=== PATIENT | female | born 1965 | race Caucasian/White ===

== ENCOUNTER 2017-01-02 06:33 | Day surgery (SDC) | payer BC ==
[~2017-01-02 06:33] MED LIST: Lactated Ringers 1,000 ML IV SCH
[2017-01-02] MEDS ORDERED: Lidocaine 2% 5 ML SDV ONE ×2 (07:06→07:26)
[2017-01-02] MEDS ORDERED: Midazolam 1 MG/ML 2 ML SDV ONE (07:07)
[2017-01-02] MEDS ORDERED: fentaNYL 250 MCG/5 ML SDV ONE (07:07)
[2017-01-02] MEDS ORDERED: Lidocaine 1% 50 ML MDV ONE (07:07)
[2017-01-02] MEDS ORDERED: Propofol 200 MG/20 ML SDV ONE ×2 (07:07→08:32)
[2017-01-02] MEDS ORDERED: Ketorolac 30 MG/ML SDV ONE (07:07)
[2017-01-02] MEDS ORDERED: Ondansetron 4 MG/2 ML SDV ONE (07:07)
[2017-01-02] MEDS ORDERED: Bupivacaine 0.25%/EPINEPHrine 1:200,000 10 ML SDV ONE (07:18)
[2017-01-02] MEDS ORDERED: Bupivacaine 0.5% 10 ML SDV ONE (07:19)
[2017-01-02] MEDS ORDERED: ceFAZolin 2 GM in Premix Bag 1 BAG IV SCH (08:00)
--- NOTE | 2017-01-02 08:03 | PCM.PREANE ---
Preanesthetic Assessment - Procedure Proposed Procedure: right shoulder arthroscopic repair - Anesthesia/Transfusion/Family Hx Anesthesia History: Prior Anesthesia Without Reaction Family History of Anesthesia Reaction: No Transfusion History: No Prior Transfusion(s) Intubation History: Unknown Additional History: 1995 was hospitalized post cholecystectomy for complications which included ICU days and several surgeries. She remains fearful of any surgery to this date because of that experience. - Review of Systems General: Other (Obesity) Pulmonary: Other (smoker q day) Cardiovascular: Other (hypertension and hypercholesterolemia) Gastrointestinal: No symptoms Neurological: Other (pain right shoulder) Other: Reports: Diabetes (Type II on metformin) - Physical Assessment NPO Status Date: 01/01/17 NPO Status Time: 23:30 O2 Sat by Pulse Oximetry: 96 Respiratory Rate: 16 Vital Signs: Last Vital Signs Temp 98.2 F 01/02/17 06:50 Pulse 74 01/02/17 06:50 Resp 16 01/02/17 06:50 BP 147/77 H 01/02/17 06:50 Pulse Ox 96 01/02/17 06:50 Height: 5 ft 6 in Weight: 250 lb ASA Class: 3 Mental Status: Alert & Oriented x3 Airway Class: Mallampati = 1 Dentition: Reports: Normal Dentition (with missing partials), Partial (removed) Thyro-Mental Finger Breadths: 3 Mouth Opening Finger Breadths: 3 ROM/Head Extension: Full Lungs: Clear to auscultation, Normal respiratory effort Cardiovascular: Regular Rate, Regular Rhythm, No Murmurs - Lab Values: Laboratory Last Values POC Glucose 124 mg/dL (60-110) H 01/02/17 07:17 - Allergies Allergies/Adverse Reactions: Allergies Allergy/AdvReac Type Severity Reaction Status Date / Time No Known Allergies Allergy Verified 12/28/16 11:55 - Blood Blood Available: No Product(s) Available: None - Anesthesia Plan Free Text/Narrative:: discussed interscalene block with she and her ; if done, will be at end case for post op analgesia. risks and benefits were discussed. Plan presented to surgeon. 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: Musculoskeletal History: Reports: Other (See Below) Other Musculoskeletal History: rt shoulder pain Psychiatric History: Reports: Anxiety Endocrine/Metabolic History: Reports: Diabetes, Type II, Hypothyroidism, Obesity /BMI 30+ - Past Surgical History Head Surgeries/Procedures: Reports: None HEENT Surgical History: Reports: Oral Surgery GI Surgical History: Reports: Cholecystectomy Female Surgical History: Reports: Section, Hysterectomy Musculoskeletal Surgical History: Reports: Carpal Tunnel - SUBSTANCE USE Smoking Status *Q: Current Every Day Smoker Tobacco Use Within Last Twelve Months: Cigarettes Recreational Drug Use History: No - HOME MEDS Home Medications: Home Meds LORazepam 1 mg PO ASDIRECTED PRN 12/28/16 [History] Levothyroxine Sodium [Synthroid] 137 mcg PO DAILY 12/28/16 [History] Lisinopril 5 mg PO DAILY 12/28/16 [History] Valsartan/Hydrochlorothiazide [Diovan Hct 320-25 mg Tablet] 1 tab PO DAILY 12/28 [History] atorvaSTATin [Lipitor] 80 mg PO DAILY 12/28/16 [History] metFORMIN HCl [Metformin HCl] 500 mg PO BID 12/28/16 [History] - CURRENT (IN HOUSE) MEDS Current Meds: Current Medications Hydrocodone Bitart/Acetaminophen (Kelliher 325-10 Mg) 1 - 2 tab PO Q4H PRN PRN Reason: Pain Lactated Ringer's (Ringers, Lactated) 1,000 mls @ 100 mls/hr IV ASDIRECTED [facility] Last Admin: 01/02/17 07:00 Dose: 100 mls/hr Cefazolin Sodium/Dextrose 2 gm (/ Premix) 50 mls @ 100 mls/hr IV ONCALL [facility] Ketorolac Tromethamine (Toradol) 10 mg PO Q6H PRN PRN Reason: Pain Stop: 01/07/17 09:01 Discontinued Medications Bupivacaine HCl (Sensorcaine-Mpf 0.5%) Confirm Administered Dose 20 ml .ROUTE .STK-MED ONE Stop: 01/02/17 07:20 Bupivacaine HCl/Epinephrine Bitart (Marcaine 0.25%/Epinephrine 1:200,000) Confirm Administered Dose 20 ml .ROUTE .STK-MED ONE Stop: 01/02/17 07:19 Fentanyl (Sublimaze) Confirm Administered Dose 250 mcg .ROUTE .STK-MED ONE Stop: 01/02/17 07:08 Ketorolac Tromethamine (Toradol) Confirm Administered Dose 30 mg .ROUTE .STK- MED ONE Stop: 01/02/17 07:08 Lidocaine (Xylocaine-Mpf 2%) Confirm Administered Dose 10 ml .ROUTE .STK-MED ONE Stop: 01/02/17 07:07 Lidocaine (Xylocaine-Mpf 2%) Confirm Administered Dose 5 ml .ROUTE .STK-MED ONE Stop: 01/02/17 07:27 Lidocaine HCl (Xylocaine 1%) Confirm Administered Dose 50 ml .ROUTE .STK-MED ONE Stop: 01/02/17 07:08 Midazolam HCl (Versed 1 Mg/Ml) Confirm Administered Dose 2 mg .ROUTE .STK-MED ONE Stop: 01/02/17 07:08 Ondansetron HCl (Zofran) Confirm Administered Dose 4 mg .ROUTE .STK-MED ONE Stop: 01/02/17 07:08 Propofol (Diprivan 20 Ml) Confirm Administered Dose 400 mg .ROUTE .STK-MED ONE Stop: 01/02/17 07:08
[2017-01-02] MEDS ORDERED: HYDROmorphone 2 MG/ML Syringe ONE (08:23)
[2017-01-02] MEDS ORDERED: ePHEDrine 50 MG/ML SDV ONE (08:31)
[2017-01-02] MEDS ORDERED: Phenylephrine/Normal Saline 100 MCG/ML 10 ML Syringe ONE (08:31)
[2017-01-02] MEDS ORDERED: Acetaminophen/HYDROcodone 325-10 MG Tab PO PRN (09:00)
[2017-01-02] MEDS ORDERED: Ketorolac 10 MG Tab PO PRN (09:00)
--- NOTE | 2017-01-02 09:48 | PCM.OPNOTE ---
- General Post-Op/Procedure Note Date of Surgery/Procedure: 01/02/17 Operative Procedure(s): R shoulder arthroscopy with SAD, debridement of anterior labrum and biceps tenotomy Post-Op Diagnosis: R shoulder impingement, biceps tendonopathy Anesthesia Technique: General ET tube Primary Surgeon: Deidra Parmar Wool Carder: Corazon Vargas in mLs: 5 Condition: Good Free Text/Narrative:: #[id number]
--- NOTE | 2017-01-02 10:10 | PCM.SN ---
- Free Text/Narrative Note: The patient had been counseled for an interscalene block for post operative analgesia. This was requested by the surgeon. The blockade was done in sterile fashion after completion of the right shoulder surgery and applicaiotn of bandage. 40 ml of 0.375% marcaine was injected after stimuplex guided twitch was obtained. Negative aspiration was observed prior to the blockade. The general anesthetic was then completed and patient taken to PACU in good condition. JKO and DNS present for the blockade ([id number]).
--- NOTE | 2017-01-02 10:11 | PCM.POSTAN ---
POST ANESTHESIA ASSESSMENT - MENTAL STATUS Mental Status: alert, oriented - RESPIRATORY Respiratory Status: respiratory rate WNL, airway patent, O2 saturation stable - CARDIOVASCULAR CV Status: pulse rate WNL, blood pressure stable - GASTROINTESTINAL GI Status: no symptoms - POST OP HYDRATION Hydration Status: adequate & stable - OBSERVATIONS Free Text/Narrative:: FBS @ 144. Plan to return to [facility] bed for phase II.
[2017-01-02] MEDS ORDERED: fentaNYL 250 MCG/5 ML SDV IVPUSH PRN (10:15)
[2017-01-02] MEDS ORDERED: fentaNYL 100 MCG/2 ML SDV ONE ×2 (10:21→10:32)
--- NOTE | 2017-01-02 14:22 | PCM48HPAN ---
Post Anesthesia Note - EVALUATION WITHIN 48HRS OF ANESTHETIC Vital Signs in Normal Range: Yes Patient Participated in Evaluation: Yes Respiratory Function Stable: Yes Airway Patent: Yes Cardiovascular Function Stable: Yes Hydration Status Stable: Yes Pain Control Satisfactory: Yes Nausea and Vomiting Control Satisfactory: Yes Mental Status Recovered: Yes
[2017-01-02 14:28] VITALS: BP 137/78
--- NOTE | 2017-01-02 18:20 | OR ---
SURGEON: Deidra Parmar MD DATE OF PROCEDURE: 01/02/2017 PREOPERATIVE DIAGNOSES: 1. Right shoulder impingement syndrome. 2. Right shoulder biceps tendinopathy. POSTOPERATIVE DIAGNOSES: 1. Right shoulder impingement syndrome. 2. Right shoulder biceps tendinopathy. 3. Right shoulder degenerative anterior labral tear. PROCEDURE: Right shoulder arthroscopy with: 1. Subacromial decompression with release of coracoacromial ligament and acromioplasty. 2. Extensive debridement including biceps tenotomy and debridement of anterior labrum. FLAT LOCKER: Corazon Vargas PA-C. ANESTHESIA: General with interscalene block placed at completion of procedure. COMPLICATIONS: None. DVT PROPHYLAXIS: PAS boots to bilateral lower extremities. IMPLANTS USED: None. BRIEF HISTORY: Tiffany is a 51-year-old female, who has had complaint of progressive right shoulder pain. She had failed conservative treatment. Due to her lack of response to conservative treatment, I did recommend surgical intervention. The risks and goals of the procedure were discussed with the patient and were documented preoperatively. She agreed to proceed. DESCRIPTION OF PROCEDURE: The patient was properly identified and brought to the operating room. She was transferred from the OR cart and placed on the operating table in supine position. General anesthesia was administered. After adequate anesthesia was obtained, she was placed into a beach-chair position. Care was taken to pad all bony prominences. Her head was secured. The right upper extremity was then prepped in standard fashion using ChloraPrep solution. It was then sterilely draped. A time-out was performed to ensure correct site and procedure. Preoperative antibiotics were given. The surgical site had been marked preoperatively. Bony landmarks were identified with a marking pen. Approximately 30 mL of normal saline was introduced into the glenohumeral joint. A posterior portal was then established. Blunt trocar and cannula were introduced into the glenohumeral joint. Camera, inflow, and outflow were assembled. The rotator interval was visualized. She did have mild synovitis noted. An anterior portal was then established. The subscapularis was visualized and probed, and found to be intact. The subscapular recess showed no loose bodies. The anterior labrum showed degenerative changes. This was resected with electrocautery. The biceps insertion appeared to be intact. She did have synovitis noted along the course of the biceps tendon. Due to her preoperative symptoms along with the intraoperative findings, I performed a biceps tenotomy with electrocautery. The biceps retracted easily into the bicipital tendon sheath. The attachment site was contoured with electrocautery. The posterior labrum did not show significant degenerative tearing. Both the glenoid and humeral head were inspected and no degenerative changes were noted. I then entered the axillary pouch. No loose bodies were noted. Mild synovitis was noted. The arm was then brought into an abducted and externally rotated position. The bare area was noted posteriorly. As I progressed forward, the cuff insertion appeared intact. There was some interstitial tearing along the anterior aspect of the supraspinatus, however, the attachment site appeared intact. The instruments were then removed from the shoulder. I then entered the subacromial space. A lateral portal was established. Using a shaver along with electrocautery, an extensive bursectomy was performed. She did have a fair amount of bursal tissue which appeared to be causing some impingement. This was resected without difficulty. The coracoacromial ligament was released along the anterior border of the acromion. She had a small bone spur anteriorly. This was then resected with the 5.0 mm liza. The rotator cuff was then inspected. It was also probed and no softening or tears were noted. Instruments were then removed from the shoulder. The portal sites were closed with 3-0 nylon. Xeroform gauze was placed over the wound and a bulky dressing was applied. She was awakened from her anesthetic. At the completion of the case, the patient was turned over to the anesthesia staff for placement of the interscalene block. All needle and sponge counts were correct. ANA LILIA / MARS /[id number]
== END 2017-01-02 14:25 | disposition home or self-care (01) ==
LOC: MW.SDS 06:33
PROVIDERS: ATTEND Orthopaedic Surgery
PROC: 0RNJ4ZZ Release Right Shoulder Joint, Percutaneous Endoscopic Approach (ICD-10-PCS; principal; 2017-01-02)
PROC: 0RBJ4ZZ Excision of Right Shoulder Joint, Percutaneous Endoscopic Approach (ICD-10-PCS; 2017-01-02)
DX: M75.41 Impingement syndrome of right shoulder (principal); M75.21 Bicipital tendinitis, right shoulder; S43.491A Other sprain of right shoulder joint, initial encounter; M65.9 Synovitis and tenosynovitis, unspecified; M19.011 Primary osteoarthritis, right shoulder; F41.9 Anxiety disorder, unspecified; E11.9 Type 2 diabetes mellitus without complications; E03.9 Hypothyroidism, unspecified; E78.00 Pure hypercholesterolemia, unspecified; I10 Essential (primary) hypertension; E66.9 Obesity, unspecified; F17.210 Nicotine dependence, cigarettes, uncomplicated; Z79.84 Long term (current) use of oral hypoglycemic drugs; Z79.899 Other long term (current) drug therapy; Z68.41 Body mass index [BMI] 40.0-44.9, adult; Z98.51 Tubal ligation status; Z90.49 Acquired absence of other specified parts of digestive tract; Z90.710 Acquired absence of both cervix and uterus; Z98.890 Other specified postprocedural states
CPT/HCPCS: 29823; 29826; 82962; A9270; J0690; J1170; J1885; J2250; J2405; J3010; J7120; 01630; 64415; 88304; J2704

== ENCOUNTER 2021-01-03 06:32 | Day surgery (SDC) | payer BC ==
[2021-01-03] MEDS ORDERED: Dexmedetomidine 200 MCG/2 ML SDV ONE (07:18)
[2021-01-03] MEDS ORDERED: Lidocaine 2% 5 ML SDV ONE (07:18)
[2021-01-03] MEDS ORDERED: Ketorolac 30 MG/ML SDV ONE (07:18)
[2021-01-03] MEDS ORDERED: Metoclopramide 10 MG/2 ML SDV ONE (07:18)
[2021-01-03] MEDS ORDERED: Glycopyrrolate 0.2 MG/ML SDV ONE (07:18)
[2021-01-03] MEDS ORDERED: Ondansetron 4 MG/2 ML SDV ONE (07:18)
[2021-01-03] MEDS ORDERED: Dexamethasone 4 MG/ML 5 ML MDV ONE (07:18)
[2021-01-03] MEDS ORDERED: Propofol 200 MG/20 ML SDV ONE ×2 (07:22→08:13)
[2021-01-03] MEDS ORDERED: Sodium Chloride 0.9% 20 ML ONE (07:27)
[2021-01-03 07:35] LABS: BLOOD UREA NITROGEN,BUN 17 mg/dL (7.0-18.0); CARBON DIOXIDE,CO2 25.9 mmol/L (21.0-32.0); CHLORIDE,CL 105 mmol/L (98-107); GLUCOSE RANDOM 112 mg/dL (74-106); POTASSIUM,K 3.8 mmol/L (3.5-5.1); SODIUM,NA 140 mmol/L (136-145)
[2021-01-03] MEDS ORDERED: Ondansetron 4 MG/2 ML SDV IVPUSH PRN ×2 (07:36→08:55)
[2021-01-03] MEDS ORDERED: Metoclopramide 10 MG/2 ML SDV IVPUSH PRN (07:36)
[2021-01-03] MEDS ORDERED: fentaNYL 100 MCG/2 ML SDV IVPUSH PRN (07:36)
[2021-01-03] MEDS ORDERED: Albuterol 0.083% 2.5 MG/3 ML Neb Soln NEB PRN (07:36)
[2021-01-03] MEDS ORDERED: Naloxone 0.4 MG/ML Syringe IVPUSH PRN (07:36)
[2021-01-03] MEDS ORDERED: Morphine 2 MG/ML SYRINGE IVPUSH PRN (07:36)
[2021-01-03] MEDS ORDERED: Bupivacaine 0.25% 10 ML SDV ONE (07:38)
[2021-01-03] MEDS ORDERED: Lidocaine 1% 20 ML MDV ONE (07:38)
[2021-01-03] MEDS ORDERED: Lidocaine 1% with EPINEPHrine 1:100,000 20 ML MDV ONE (07:38)
--- NOTE | 2021-01-03 07:39 | PCM.PREANE ---
Preanesthetic Assessment - Anesthesia/Transfusion/Family Hx Anesthesia History: Prior Anesthesia Without Reaction Family History of Anesthesia Reaction: No Transfusion History: Prior Transfusion Reaction Type of Transfusion Reactions: Reports: Other (see below) Other Type of Transfusion Reaction: itching Intubation History: Unknown - Review of Systems General: Fatigue Pulmonary: Shortness of Breath, Cough Cardiovascular: Dyspnea on Exertion Gastrointestinal: No Symptoms Neurological: No Symptoms Other: Reports: Diabetes - Physical Assessment NPO Status Date: 01/03/21 NPO Status Time: 00:00 Vital Signs: Last Vital Signs Temp 97.7 F 01/03/21 06:40 Pulse 70 01/03/21 06:40 Resp 15 01/03/21 06:40 BP 151/67 H 01/03/21 06:40 Pulse Ox 96 01/03/21 06:40 Height: 5 ft 5.75 in Weight: 227 lb ASA Class: 3 Mental Status: Alert & Oriented x3 Airway Class: Mallampati = 2 Dentition: Reports: Edentulous Thyro-Mental Finger Breadths: 4 Mouth Opening Finger Breadths: 4 ROM/Head Extension: Full Lungs: Clear to Auscultation, Normal Respiratory Effort Cardiovascular: Regular Rate, Regular Rhythm - Lab Values: Laboratory Last Values WBC 9.82 K/uL (4.0-11.0) 01/03/21 07:00 RBC 5.23 M/uL (4.30-5.90) 01/03/21 07:00 Hgb 12.4 g/dL (12.0-16.0) 01/03/21 07:00 Hct 37.9 % (36.0-46.0) 01/03/21 07:00 MCV 72.5 fL (80.0-98.0) L 01/03/21 07:00 MCH 23.7 pg (27.0-32.0) L 01/03/21 07:00 MCHC 32.7 g/dL (31.0-37.0) 01/03/21 07:00 RDW Std Deviation 37.1 fl (28.0-62.0) 01/03/21 07:00 RDW Coeff of Jamilah 14 % (11.0-15.0) 01/03/21 07:00 Plt Count 268 K/uL (150-400) 01/03/21 07:00 MPV 10.00 fL (7.40-12.00) 01/03/21 07:00 Nucleated RBC % 0.0 /100WBC 01/03/21 07:00 Nucleated RBCs # 0 K/uL 01/03/21 07:00 - Allergies Allergies/Adverse Reactions: Allergies Allergy/AdvReac Type Severity Reaction Status Date / Time gabapentin Allergy Blisters Verified 12/28/20 13:15 lisinopril Allergy Cough Verified 12/28/20 13:15 - Acknowledgements Anesthesia Type Planned: General Anesthesia Pt an Appropriate Candidate for the Planned Anesthesia: Yes Alternatives and Risks of Anesthesia Discussed w Pt/Guardian: Yes Pt/Guardian Understands and Agrees with Anesthesia Plan: Yes PreAnesthesia Questionnaire HEENT History: Reports: Other (See Below) Other HEENT History: upper and lower removable partial denture Cardiovascular History: Reports: High Cholesterol, Hypertension Respiratory History: Reports: None Gastrointestinal History: Reports: Cholelithiasis Genitourinary History: Reports: None 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: Musculoskeletal History: Reports: None Neurological History: Reports: Seizure, Other (See Below) Other Neuro History: right sciatic nerve pain and degenerative disc disease, had a seizure due to toxemia with first Psychiatric History: Reports: None Endocrine/Metabolic History: Reports: Diabetes, Type II, Hypothyroidism, Obesity/BMI 30+ Other Endocrine/Metabolic History: will be off of Levothyroxine for a month due to "low numbers" Hematologic History: Reports: Blood Transfusion(s) Immunologic History: Reports: None Oncologic (Cancer) History: Reports: None Dermatologic History: Reports: None - Past Surgical History Head Surgeries/Procedures: Reports: None HEENT Surgical History: Reports: None Cardiovascular Surgical History: Reports: None Respiratory Surgical History: Reports: None GI Surgical History: Reports: Cholecystectomy, Other (See Below) Other GI Surgeries/Procedures: had stones in CBD post-op- became very ill and w as on a ventilator Female Surgical History: Reports: Section, Hysterectomy, Tubal Ligation Other Female Surgeries/Procedures: x3 Endocrine Surgical History: Reports: None Neurological Surgical History: Reports: None Musculoskeletal Surgical History: Reports: Carpal Tunnel, Shoulder Surgery Other Musculoskeletal Surgeries/Procedures:: bilateral CTR, ligament repair in right shoulder Dermatological Surgical History: Reports: None - SUBSTANCE USE Tobacco Use Status *Q: Current Every Day Tobacco User Tobacco Use Within Last Twelve Months: Cigarettes Recreational Drug Use History: No - HOME MEDS Home Medications: Home Meds atorvaSTATin [Lipitor] 80 mg PO BEDTIME 12/28/16 [History] metFORMIN HCl [Metformin HCl] 1,000 mg PO BID 12/28/16 [History] Celecoxib [CeleBREX] 100 mg PO DAILY PRN 12/28/20 [History] Levothyroxine 112 mcg PO DAILY PRN 12/28/20 [History] Losartan Potassium 100 mg PO QAM 12/28/20 [History] amLODIPine [Norvasc] 5 mg PO BEDTIME 12/28/20 [History] hydroCHLOROthiazide [Hydrochlorothiazide] 25 mg PO DAILY 12/28/20 [History] traMADol [Ultram] 50 mg PO BID 12/28/20 [History] - CURRENT (IN HOUSE) MEDS Current Meds: Current Medications Lactated Ringer's (Ringers, Lactated) 1,000 mls @ 100 mls/hr IV ASDIRECTED [facility] Last Admin: 01/03/21 06:54 Dose: 100 mls/hr Documented by: Discontinued Medications Dexamethasone (Dexamethasone 4 Mg/Ml 5 Ml Mdv) Confirm Administered Dose 20 mg .ROUTE .STK-MED ONE Stop: 01/03/21 07:19 Dexmedetomidine HCl (Dexmedetomidine 200 Mcg/2 Ml Sdv) Confirm Administered Dose 200 mcg .ROUTE .STK-MED ONE Stop: 01/03/21 07:19 Glycopyrrolate (Glycopyrrolate 0.2 Mg/Ml Sdv) Confirm Administered Dose 0.2 mg .ROUTE .STK-MED ONE Stop: 01/03/21 07:19 Acetaminophen (Ofirmev 1000 Mg/100 Ml) Confirm Administered Dose 100 mls @ as directed .ROUTE .STK-MED ONE Stop: 01/03/21 07:22 Sodium Chloride (Normal Saline) Confirm Administered Dose 20 mls @ as directed .ROUTE .STK-MED ONE Stop: 01/03/21 07:28 Ketorolac Tromethamine (Ketorolac 30 Mg/Ml Sdv) Confirm Administered Dose 30 mg .ROUTE .STK-MED ONE Stop: 01/03/21 07:19 Lidocaine (Lidocaine 2% 5 Ml Sdv) Confirm Administered Dose 5 ml .ROUTE .STK-MED ONE Stop: 01/03/21 07:19 Metoclopramide HCl (Metoclopramide 10 Mg/2 Ml Sdv) Confirm Administered Dose 10 mg .ROUTE .STK-MED ONE Stop: 01/03/21 07:19 Ondansetron HCl (Ondansetron 4 Mg/2 Ml Sdv) Confirm Administered Dose 4 mg .ROUTE .STK-MED ONE Stop: 01/03/21 07:19 Propofol (Propofol 200 Mg/20 Ml Sdv) Confirm Administered Dose 400 mg .ROUTE .STK-MED ONE Stop: 01/03/21 07:23
[2021-01-03] MEDS ORDERED: fentaNYL 100 MCG/2 ML SDV ONE (08:15)
[2021-01-03] MEDS: HYDROmorphone 2 MG/ML Syringe IVPUSH PRN ×4 (08:51→10:07)
[2021-01-03] MEDS ORDERED: Promethazine 25 MG/ML SDV IM PRN (08:55)
[2021-01-03] MEDS ORDERED: Morphine 4 MG/ML Syringe IVPUSH PRN (08:55)
--- NOTE | 2021-01-03 08:55 | PCM.OPNOTE ---
- General Post-Op/Procedure Note Date of Surgery/Procedure: 01/03/21 Operative Procedure(s): anterior colporrhaphy Findings: 3rd degree cystocele Pre Op Diagnosis: cystocele Post-Op Diagnosis: Same Anesthesia Technique: Other (see below) (TIVA) Primary Surgeon: Sheila Fernando Secondary Surgeon: Yazmin Vieira Anesthesia Provider: Jay Ohara [employer] F[employer] Tool Technician: Nirali Ames Pathology: vaginal mucosa Fluid Replacement, Intraop: 700 EBL in mLs: 20 Complications: None Known Condition: Good
[2021-01-03] MEDS ORDERED: Lactated Ringers 1,000 ML IV SCH (09:00)
--- NOTE | 2021-01-03 09:03 | PCM48HPAN ---
Post Anesthesia Note - EVALUATION WITHIN 48HRS OF ANESTHETIC Vital Signs in Normal Range: Yes Patient Participated in Evaluation: Yes Respiratory Function Stable: Yes Airway Patent: Yes Cardiovascular Function Stable: Yes Hydration Status Stable: Yes Pain Control Satisfactory: Yes Nausea and Vomiting Control Satisfactory: Yes Mental Status Recovered: Yes Vital Signs: Last Vital Signs Temp 97.7 F 01/03/21 08:42 Pulse 57 L 01/03/21 09:01 Resp 10 L 01/03/21 09:01 BP 110/40 L 01/03/21 09:01 Pulse Ox 98 01/03/21 09:01
--- NOTE | 2021-01-03 09:03 | PCM.POSTAN ---
POST ANESTHESIA ASSESSMENT - MENTAL STATUS Mental Status: Alert, Oriented - VITAL SIGNS Vital Signs: Last Vital Signs Temp 97.7 F 01/03/21 08:42 Pulse 57 L 01/03/21 09:01 Resp 10 L 01/03/21 09:01 BP 110/40 L 01/03/21 09:01 Pulse Ox 98 01/03/21 09:01 - RESPIRATORY Respiratory Status: Respiratory Rate WNL, Airway Patent, O2 Saturation Stable - CARDIOVASCULAR CV Status: Pulse Rate WNL, Blood Pressure Stable - GASTROINTESTINAL GI Status: No Symptoms - POST OP HYDRATION Hydration Status: Adequate & Stable
--- NOTE | 2021-01-03 11:16 | OR ---
SURGEON: Sheila Fernando M.D. DATE OF PROCEDURE: 01/03/2021 PREOPERATIVE DIAGNOSIS: Third-degree symptomatic cystocele. POSTOPERATIVE DIAGNOSIS: Third-degree symptomatic cystocele. PROCEDURE: Anterior colporrhaphy. PRIMARY SURGEON: Sheila Fernando M.D. OUTPATIENT COORDINATOR: Yazmin Vieira MD ANESTHESIA: TIVA. FINDINGS: Third-degree cystocele. COMPLICATIONS: None known. PATHOLOGY SPECIMEN: Vaginal mucosa. INTRAVENOUS FLUIDS: 700 mL of crystalloid. ESTIMATED BLOOD LOSS: 20 mL. BRIEF HISTORY: This is a 55-year-old female. She presents with a symptomatic bulge from her vagina. This is very worrisome to her. On examination, she had a third-degree cystocele. She was offered pessary versus surgical repair, and she desires to proceed with surgical repair with risks discussed including bleeding; infection; injury to bowel, bladder, blood vessels, ureters, or other organs; risk of thromboembolic event; and risk of anesthesia. Understanding all these risks, she does desire to proceed. DESCRIPTION OF PROCEDURE: With the patient in dorsal lithotomy position, under total IV anesthesia, and with SCDs in place, the perineum and vagina were prepped with Betadine, draped in usual fashion for vaginal surgery. SCDs were in place. A Oakley catheter had been placed. An appropriate time-out was held. Weighted speculum was placed posteriorly. The Allis clamp was placed approximately 2 cm cephalad from the urethral meatus. The smooth vaginal mucosa was identified overlying the cystocele, and the hydrodissection was performed. A scalpel was used to incise a 1 cm incision just below the Allis clamp. The vaginal mucosa was undermined with Metzenbaum scissors. The muscularis layer was from the overlying vaginal mucosa. The muscularis layer was reapproximated in the midline using multiple interrupted mattress sutures of 3-0 Vicryl. The vaginal mucosa was slightly trimmed. The vaginal mucosa was closed with a running lock suture of 0 Polysorb. There was excellent reduction of the cystocele. Final sponge, needle, and instrument counts were reported as correct. There were no known complications. The patient was transferred to Recovery in good condition. YANELI / MARS /[id number]
[2021-01-03] MEDS ORDERED: traMADol 50 MG Tab ONE (12:30)
[2021-01-03] MEDS: Ketorolac 30 MG/ML SDV IVPUSH SCH ×3 (15:15→20:59)
[2021-01-03] MEDS: metFORMIN 500 MG Tab PO SCH (17:09)
[2021-01-03] MEDS ORDERED: traMADol 50 MG Tab PO PRN (21:00)
[2021-01-03] MEDS ORDERED: atorvaSTATin 40 MG Tab PO SCH (21:00)
[2021-01-03] MEDS ORDERED: amLODIPine 5 MG Tab PO SCH (21:00)
[2021-01-04] MEDS: Ketorolac 30 MG/ML SDV IVPUSH SCH ×2 (03:21→09:30)
[2021-01-04 03:47] VITALS: PULSE 67
[2021-01-04] MEDS ORDERED: Levothyroxine 112 MCG Tab PO SCH (07:30)
[2021-01-04] MEDS: metFORMIN 500 MG Tab PO SCH (08:01)
--- NOTE | 2021-01-04 08:46 | PCM.SURGPN ---
- General Info Date of Service: 01/04/21 Date of Surgery/Procedure: 01/03/21 POD#: 1 Post-Op Diagnosis: cystocele Functional Status: Reports: Pain Controlled, Tolerating Diet, Ambulating, Urinating - Review of Systems General: Reports: No Symptoms HEENT: Reports: No Symptoms Pulmonary: Reports: No Symptoms Cardiovascular: Reports: No Symptoms Gastrointestinal: Reports: No Symptoms Genitourinary: Reports: No Symptoms Musculoskeletal: Reports: No Symptoms Skin: Reports: No Symptoms Neurological: Reports: No Symptoms Psychiatric: Reports: No Symptoms - Patient Data Vitals - Most Recent: Last Vital Signs Temp 36.4 C 01/04/21 03:25 Pulse 67 01/04/21 03:25 Resp 13 01/04/21 03:25 BP 130/73 01/04/21 03:25 Pulse Ox 93 L 01/04/21 04:00 Weight - Most Recent: 102.965 kg I&O - Last 24 Hours: Intake & Output 01/03/21 01/04/21 01/04/21 22:59 06:59 14:59 Output Total 300 Balance -300 Lab Results Last 24 Hrs: Laboratory Results - last 24 hr 01/03/21 01/03/21 01/03/21 Range/Units 07:00 07:00 12:15 POC Glucose 172 H (70-99) mg/dL Blood Type A NEGATIVE Antibody Screen POSITIVE Antibody Identification Anti-K Antigen Typing K Antigen - NEGATIVE Crossmatch See Detail 01/03/21 01/03/21 Range/Units 17:05 22:28 POC Glucose 212 H 136 H (70-99) mg/dL Blood Type Antibody Screen Antibody Identification Antigen Typing Crossmatch Med Orders - Current: Current Medications Amlodipine Besylate (Amlodipine 5 Mg Tab) 5 mg PO BEDTIME [facility] Last Admin: 01/03/21 20:58 Dose: 5 mg Documented by: Atorvastatin Calcium (Atorvastatin 40 Mg Tab) 80 mg PO BEDTIME [facility] Last Admin: 01/03/21 20:57 Dose: 80 mg Documented by: Hydrochlorothiazide (Hydrochlorothiazide 25 Mg Tab) 25 mg PO DAILY [facility] Lactated Ringer's (Ringers, Lactated) 1,000 mls @ 125 mls/hr IV ASDIRECTED [facility] Last Admin: 01/03/21 10:33 Dose: 125 mls/hr Documented by: Ketorolac Tromethamine (Ketorolac 30 Mg/Ml Sdv) 15 mg IVPUSH Q6H [facility] Stop: 01/08/21 08:55 Last Admin: 01/04/21 03:21 Dose: 15 mg Documented by: Levothyroxine Sodium (Levothyroxine 112 Mcg Tab) 112 mcg PO ACBREAKFAST [facility] Last Admin: 01/04/21 07:44 Dose: Not Given Documented by: Losartan Potassium (Losartan 50 Mg Tab) 100 mg PO QAM [facility] Metformin HCl (Metformin 500 Mg Tab) 1,000 mg PO BIDMEALS [facility] Last Admin: 01/04/21 08:01 Dose: 1,000 mg Documented by: Morphine Sulfate (Morphine 4 Mg/Ml Syringe) 4 mg IVPUSH Q2H PRN PRN Reason: Pain (severe 7-10) Ondansetron HCl (Ondansetron 4 Mg/2 Ml Sdv) 4 mg IVPUSH Q6H PRN PRN Reason: Nausea/Vomiting Promethazine HCl (Promethazine 25 Mg/Ml Sdv) 25 mg IM Q6H PRN PRN Reason: Nausea/Vomiting Tramadol HCl (Tramadol 50 Mg Tab) 50 mg PO BID PRN PRN Reason: PAIN Discontinued Medications Albuterol (Albuterol 0.083% 2.5 Mg/3 Ml Neb Soln) 2.5 mg NEB ONETIME PRN PRN Reason: Wheezing Bupivacaine HCl (Bupivacaine 0.25% 10 Ml Sdv) Confirm Administered Dose 10 ml .ROUTE .STK-MED ONE Stop: 01/03/21 07:39 Dexamethasone (Dexamethasone 4 Mg/Ml 5 Ml Mdv) Confirm Administered Dose 20 mg .ROUTE .STK-MED ONE Stop: 01/03/21 07:19 Dexmedetomidine HCl (Dexmedetomidine 200 Mcg/2 Ml Sdv) Confirm Administered Dose 200 mcg .ROUTE .STK-MED ONE Stop: 01/03/21 07:19 Droperidol (Droperidol 5 Mg/2 Ml Sdv) 0.625 mg IVPUSH ONETIME PRN PRN Reason: Nausea/Vomiting Fentanyl (Fentanyl 100 Mcg/2 Ml Sdv) 50 mcg IVPUSH Q5M PRN PRN Reason: Pain (mild 1-3) Fentanyl (Fentanyl 100 Mcg/2 Ml Sdv) Confirm Administered Dose 100 mcg .ROUTE .STK-MED ONE Stop: 01/03/21 08:16 Glycopyrrolate (Glycopyrrolate 0.2 Mg/Ml Sdv) Confirm Administered Dose 0.2 mg .ROUTE .STK-MED ONE Stop: 01/03/21 07:19 Hydromorphone HCl (Hydromorphone 2 Mg/Ml Syringe) 0.5 mg IVPUSH Q10M PRN PRN Reason: Pain (moderate 4-6) Last Admin: 01/03/21 10:07 Dose: 0.5 mg Documented by: Lactated Ringer's (Ringers, Lactated) 1,000 mls @ 100 mls/hr IV ASDIRECTED [facility] Last Admin: 01/03/21 06:54 Dose: 100 mls/hr Documented by: Acetaminophen (Ofirmev 1000 Mg/100 Ml) Confirm Administered Dose 100 mls @ as directed .ROUTE .STK-MED ONE Stop: 01/03/21 07:22 Sodium Chloride (Normal Saline) Confirm Administered Dose 20 mls @ as directed .ROUTE .STK-MED ONE Stop: 01/03/21 07:28 Ketorolac Tromethamine (Ketorolac 30 Mg/Ml Sdv) Confirm Administered Dose 30 mg .ROUTE .STK-MED ONE Stop: 01/03/21 07:19 Lidocaine (Lidocaine 2% 5 Ml Sdv) Confirm Administered Dose 5 ml .ROUTE .STK-MED ONE Stop: 01/03/21 07:19 Lidocaine HCl (Lidocaine 1% 20 Ml Mdv) Confirm Administered Dose 20 ml .ROUTE .STK-MED ONE Stop: 01/03/21 07:39 Lidocaine/Epinephrine (Lidocaine 1% With Epinephrine 1:100,000 20 Ml Mdv) Confirm Administered Dose 20 ml .ROUTE .STK-MED ONE Stop: 01/03/21 07:39 Metoclopramide HCl (Metoclopramide 10 Mg/2 Ml Sdv) Confirm Administered Dose 10 mg .ROUTE .STK-MED ONE Stop: 01/03/21 07:19 Metoclopramide HCl (Metoclopramide 10 Mg/2 Ml Sdv) 10 mg IVPUSH ONETIME PRN PRN Reason: Nausea/Vomiting Morphine Sulfate (Morphine 2 Mg/Ml Syringe) 2 mg IVPUSH Q10M PRN PRN Reason: Pain (severe 7-10) Naloxone HCl (Naloxone 0.4 Mg/Ml Syringe) 0.1 mg IVPUSH ASDIRECTED PRN PRN Reason: Respiratory Depression Ondansetron HCl (Ondansetron 4 Mg/2 Ml Sdv) Confirm Administered Dose 4 mg .ROUTE .STK-MED ONE Stop: 01/03/21 07:19 Ondansetron HCl (Ondansetron 4 Mg/2 Ml Sdv) 4 mg IVPUSH ONETIME PRN PRN Reason: Nausea/Vomiting Propofol (Propofol 200 Mg/20 Ml Sdv) Confirm Administered Dose 400 mg .ROUTE .STK-MED ONE Stop: 01/03/21 07:23 Propofol (Propofol 200 Mg/20 Ml Sdv) Confirm Administered Dose 200 mg .ROUTE .STK-MED ONE Stop: 01/03/21 08:14 Tramadol HCl (Tramadol 50 Mg Tab) Confirm Administered Dose 50 mg .ROUTE .STK- MED ONE Stop: 01/03/21 12:31 Last Admin: 01/03/21 12:35 Dose: 50 mg Documented by: - Exam General: Alert, Oriented Lungs: Normal Respiratory Effort Extremities: No Pedal Edema Neurological: No New Focal Deficit Psy/Mental Status: Alert, Normal Affect, Normal Mood Sepsis Event Note - Evaluation Sepsis Screening Result: No Definite Risk - Focused Exam Vital Signs: Vital Signs Temp Pulse Resp BP BP Pulse Ox 01/04/21 04:00 93 L 01/04/21 03:25 36.4 C 67 13 130/73 92 L 01/04/21 02:00 96 01/04/21 01:00 92 L 01/04/21 00:15 36.1 C 78 18 130/61 96 01/03/21 23:00 94 L 01/03/21 22:15 93 L 01/03/21 21:00 92 L 01/03/21 20:58 128/60 - Problem List Review Problem List Initiated/Reviewed/Updated: Yes - My Orders Last 24 Hours: Active Orders 24 hr Category Date Time Status Patient Status [ADT] Routine ADT 01/03/21 08:55 Active Antiembolic Devices [RC] PER UNIT ROUTINE Care 01/03/21 08:56 Active Blood Glucose Check, Bedside [RC] QIDACANDBED Care 01/03/21 08:55 Active Communication Order [RC] ASDIRECTED Care 01/03/21 08:58 Active Diabetes Education [RC] Click to Edit Care 01/03/21 08:58 Active Notify Provider Intake and Out [RC] ASDIRECTED Care 01/03/21 08:55 Active Notify Provider Vital Signs [RC] ASDIRECTED Care 01/03/21 08:55 Active Notify Provider [RC] PRN Care 01/03/21 08:58 Active Oxygen Therapy [RC] ASDIRECTED Care 01/03/21 08:55 Active RT Incentive Spirometry [RC] Q2HWA Care 01/03/21 08:55 Active Up With Assistance [RC] PER UNIT ROUTINE Care 01/03/21 08:55 Active Up ad Beverley [RC] PER UNIT ROUTINE Care 01/03/21 08:55 Active Urinary Catheter Removal [RC] Per Unit Routine Care 01/03/21 08:55 Active Vital Signs [RC] PER UNIT ROUTINE Care 01/03/21 08:55 Active Consistent Carbohydrate Diet [DIET] Diet 01/03/21 Lunch Active Ketorolac [Toradol] Med 01/03/21 09:00 Active 15 mg IVPUSH Q6H Lactated Ringers [Ringers, Lactated] 1,000 ml Med 01/03/21 09:00 Active IV ASDIRECTED Levothyroxine Med 01/04/21 07:30 Active 112 mcg PO ACBREAKFAST Losartan [Cozaar] Med 01/04/21 09:00 Active 100 mg PO QAM Morphine Med 01/03/21 08:55 Active 4 mg IVPUSH Q2H PRN Ondansetron [Zofran] Med 01/03/21 08:55 Active 4 mg IVPUSH Q6H PRN Promethazine [Phenergan] Med 01/03/21 08:55 Active 25 mg IM Q6H PRN amLODIPine [Norvasc] Med 01/03/21 21:00 Active 5 mg PO BEDTIME atorvaSTATin [Lipitor] Med 01/03/21 21:00 Active 80 mg PO BEDTIME hydroCHLOROthiazide Med 01/04/21 09:00 Active 25 mg PO DAILY metFORMIN [Glucophage] Med 01/03/21 17:00 Active 1,000 mg PO BIDMEALS traMADol [Ultram] Med 01/03/21 21:00 Active 50 mg PO BID PRN Glucose Management IV Reflex [OM.PC] Routine Oth 01/03/21 08:57 Ordered Glucose Management Sub Q Reflex [OM.PC] Click To Edit Oth 01/03/21 08:55 Ordered Peripheral IV Discontinue [OM.PC] Routine Oth 01/03/21 08:55 Ordered Remove Vaginal Packing [OM.PC] Per Unit Routine Oth 01/04/21 05:00 Ordered Sequential Compression Device [OM.PC] Per Unit Routine Oth 01/03/21 08:55 Ordered Resuscitation Status Routine Resus Stat 01/03/21 08:55 Ordered Medication Orders Amlodipine Besylate (Amlodipine 5 Mg Tab) 5 mg PO BEDTIME [facility] Last Admin: 01/03/21 20:58 Dose: 5 mg Documented by: ALFONZO Atorvastatin Calcium (Atorvastatin 40 Mg Tab) 80 mg PO BEDTIME [facility] Last Admin: 01/03/21 20:57 Dose: 80 mg Documented by: ALFONZO Hydrochlorothiazide (Hydrochlorothiazide 25 Mg Tab) 25 mg PO DAILY [facility] Lactated Ringer's (Ringers, Lactated) 1,000 mls @ 125 mls/hr IV ASDIRECTED [facility] Last Admin: 01/03/21 10:33 Dose: 125 mls/hr Documented by: NEFTALI Ketorolac Tromethamine (Ketorolac 30 Mg/Ml Sdv) 15 mg IVPUSH Q6H [facility] Stop: 01/08/21 08:55 Last Admin: 01/04/21 03:21 Dose: 15 mg Documented by: Admin: 01/03/21 20:59 Dose: 15 mg Documented by: Admin: 01/03/21 20:28 Dose: Not Given Documented by: Admin: 01/03/21 15:15 Dose: 15 mg Documented by: LEONCIO Levothyroxine Sodium (Levothyroxine 112 Mcg Tab) 112 mcg PO ACBREAKFAST [facility] Last Admin: 01/04/21 07:44 Dose: Not Given Documented by: SHARA Losartan Potassium (Losartan 50 Mg Tab) 100 mg PO QAM [facility] Metformin HCl (Metformin 500 Mg Tab) 1,000 mg PO BIDMEALS [facility] Last Admin: 01/04/21 08:01 Dose: 1,000 mg Documented by: Admin: 01/03/21 17:09 Dose: 1,000 mg Documented by: LEONCIO Morphine Sulfate (Morphine 4 Mg/Ml Syringe) 4 mg IVPUSH Q2H PRN PRN Reason: Pain (severe 7-10) Ondansetron HCl (Ondansetron 4 Mg/2 Ml Sdv) 4 mg IVPUSH Q6H PRN PRN Reason: Nausea/Vomiting Promethazine HCl (Promethazine 25 Mg/Ml Sdv) 25 mg IM Q6H PRN PRN Reason: Nausea/Vomiting Tramadol HCl (Tramadol 50 Mg Tab) 50 mg PO BID PRN PRN Reason: PAIN - Assessment Assessment (Free Text/Narrative):: POD#1 after anterior colporrhapy, packing removed, dry, catheter out and has urinated Type 2 diabetes, moderate control, metformin restarted last night. - Plan Plan (Free Text/Narrative):: Dismiss to home discharge instructions reviewed.
[2021-01-04] MEDS ORDERED: Hydrochlorothiazide 25 MG Tab PO SCH (09:00)
[2021-01-04] MEDS ORDERED: Losartan 50 MG Tab PO SCH (09:00)
[2021-01-04 09:37] VITALS: BP 151/74
== END 2021-01-04 10:05 | disposition home or self-care (01) ==
LOC: MW.SDS 06:32 → MW.OB 08:52 → MW.SDS 01-04 10:05
PROVIDERS: ATTEND Obstetrics & Gynecology
DX: N81.10 Cystocele, unspecified (principal); E03.9 Hypothyroidism, unspecified; I10 Essential (primary) hypertension; E11.9 Type 2 diabetes mellitus without complications; E66.9 Obesity, unspecified; F17.210 Nicotine dependence, cigarettes, uncomplicated; Z79.84 Long term (current) use of oral hypoglycemic drugs; Z90.49 Acquired absence of other specified parts of digestive tract; Z98.890 Other specified postprocedural states; Z88.8 Allergy status to other drugs, medicaments and biological substances; Z79.899 Other long term (current) drug therapy; Z68.36 Body mass index [BMI] 36.0-36.9, adult
CPT/HCPCS: 36415; 57240; 80048; 82947; 85027; 86850; 86870; 86900; 86901; 86902; 86920; 86921; 86922; A9270; J0131; J1100; J1170; J1885; J2704; J3010; J3490; J7120; 00942; J2405; J2765